=== PATIENT | female | born 1965 | race Caucasian/White ===

== ENCOUNTER 2017-02-28 15:30 | Emergency (ER) | payer OTHER ==
--- NOTE | ~2017-02-28 | CR252 ---
[facility] A Service of [facility] & [facility] RADIOLOGY TEXT RESULTS PATIENT: DANISHA ABEL LOCATION: CFTX : 63 UNIT #: [id number] AGE: [address]: Clementina De La Cruz APRN SEX: F ORDER DR: [id number] [facility] [address] [place], [place] [address] [id number] E MR#: [id number] Acc #: [id number] NAME: DANISHA ABEL : 1965 SEX: F STUDY DATE/TIME: 02/28/2017 16:27 UNIT: CFTX ROOM: STUDY DESCRIPTION: CR Tibia and Fibula 2 Views Lt Attending Physician: Clementina De La Cruz A.P.R.N. Ordering Physician: [facility] Primary Care Physician: Sina Gilman M.D. MEDICAL IMAGING REPORT This report is preliminary unless electronic signature is present EXAM Left tibia and fibula 4 views 02/28/2017 COMPARISON None. HISTORY Fall on gravel today with pain and swelling. FINDINGS Negative for fracture, foreign body, or dislocation, though there does appear to be soft tissue defect. Dictated by... Rafael Sam M.D. THIS IS AN ELECTRONICALLY VERIFIED REPORT Rafael Sam M.D. at 03/09/2017 10:40 AM TEV/pcl TD: 03/01/2017 11:34 JOB #: [id number] MEDICAL IMAGING REPORT Page 1 of 1 COPY
--- NOTE | ~2017-02-28 | CR127 ---
[facility] A Service of [facility] & [facility] RADIOLOGY TEXT RESULTS PATIENT: DANISHA ABEL LOCATION: CFTX : 63 UNIT #: [id number] AGE: [address]: Clementina De La Cruz APRN SEX: F ORDER DR: [id number] [facility] [address] [place], [place] [address] [id number] E MR#: [id number] Acc #: [id number] NAME: DANISHA ABEL : 1965 SEX: F STUDY DATE/TIME: 02/28/2017 18:29 UNIT: [facility] ROOM: STUDY DESCRIPTION: CR Foot Complete Min 3 View Rt Attending Physician: Clementina De La Cruz A.P.R.N. Ordering Physician: Ed Justin Bond M.D. Primary Care Physician: Sina Gilman M.D. MEDICAL IMAGING REPORT This report is preliminary unless electronic signature is present EXAM Right foot, 3 views. HISTORY Foot pain and swelling after a fall today. FINDINGS The tarsal, metatarsal, and phalangeal elements are all anatomically normal in position and alignment. There are no articular defects. No fractures or radiopaque foreign bodies in the soft tissues are apparent. IMPRESSION Normal foot. Dictated by... Gael Donaldson M.D. THIS IS AN ELECTRONICALLY VERIFIED REPORT Gael Donaldson M.D. at 03/01/2017 10:57 PM DFL/slade TD: 03/01/2017 14:00 JOB #: [id number] MEDICAL IMAGING REPORT Page 1 of 1 COPY
--- NOTE | ~2017-02-28 | CR169 ---
[facility] A Service of [facility] & [facility] RADIOLOGY TEXT RESULTS PATIENT: DANISHA ABEL LOCATION: CFTX : 63 UNIT #: [id number] AGE: [address]: Clementina De La Cruz APRN SEX: F ORDER DR: [id number] [facility] [address] [place], [place] [address] [id number] E MR#: [id number] Acc #: [id number] NAME: DANISHA ABEL : 1965 SEX: F STUDY DATE/TIME: 02/28/2017 16:26 UNIT: [facility] ROOM: STUDY DESCRIPTION: CR Knee 2 Views Lt Attending Physician: Clementina De La Cruz A.P.R.N. Ordering Physician: [facility] Primary Care Physician: Sina Gilman M.D. MEDICAL IMAGING REPORT This report is preliminary unless electronic signature is present EXAM Left knee HISTORY Fall. Left knee injury and laceration. Patient fell today. Patient has pain. FINDINGS Three views of the left knee were obtained. There is a laceration visible anterior to the patella on the lateral view. There is no fracture or foreign body. IMPRESSION There is an anterior laceration visible in front of the patella, otherwise the study is normal. Dictated by... Neto Rodriguez M.D. THIS IS AN ELECTRONICALLY VERIFIED REPORT Neto Rodriguez M.D. at 03/02/2017 7:12 AM FEL/pcl TD: 03/01/2017 11:33 JOB #: [id number] MEDICAL IMAGING REPORT Page 1 of 1 COPY
[~2017-02-28 15:30] MED LIST: ACETAMIN; ACETAMINOPHEN PO; AMBIZINE25 MG PO; ANTIVERT PO; ASPIRIN81 M2 PO; ATORVASTATIN CA20 MG PO; BACTRIM DS TABL1 TAB PO; CHANTIX PO; CHANTIX1 MG PO; CIPRO PO; ESGIC 50-325-41 EACH PO; FERREX 150 FOR1 EACH PO; FIORICET1 TAB PO; FIORINAL 50-321 EACH PO; FIORINAL CAPSUL1 CAP PO; FLAGYL PO; FLEXERIL10 MG PO; GARCINIA; GARCINIA CAMBO1 EACH PO; GARCINIA CAMBOGIA PO; HAIR, SKIN & N1 EAC1 PO; HYDROCHLOROTH12.5 MG PO; HYDROCHLOROTHIA25 MG PO; HYDROXYZINE HCL25 M1 DOB; HYDROXYZINE HCL25 M1 PO; IRON1 TAB PO; KLONOPIN1 MG PO; KLONOPIN2 MG PO; LAMICTAL XR200 MG PO; LAMICTAL100 MG PO; LAMOTRIGINE200 MG PO; LIPITOR PO; LIPITOR20 MG PO; LOSARTAN POTASS50 MG PO; LOW DOSE ASPIRI81 M1 PO; MICROZIDE12.5 M1 PO; NABUMETONE PO; NITROGLYGERIN0.4 MG SL; NITROQUICK0.4 MG SL; NITROSTAT0.4 MG SL; NORCO 10-325 TA1 TAB PO; NORCO 10/3251 TAB PO; OMEPRAZOLE40 M1 PO; ORUDIS75 M1 PO; PANTOPRAZOLE SO40 MG PO; PHENERGAN PO; POTASSIUM CITR10 MEQ PO; PRILOSEC PO; PRILOSEC40 MG PO; QUETIAPINE FUM300 MG PO; SEROQUEL300 M1 PO; SEROQUEL300 MG DOB; VESICARE PO; VESICARE5 MG PO; VIT B-12 PO; VITAMIN C PO; VITAMIN D 4001 UDTAB PO; VITAMIN D1000 UNI1 PO; VITAMIN D3 PO; WATER PILL; WELLBUTRIN XL PO; [UNRECOGNIZED DRUG - OTHER]; [UNRECOGNIZED DRUG - OTHER] PO; [UNRECOGNIZED DRUG - OTHER] PO; [UNRECOGNIZED DRUG - REMARK]
== END 2017-02-28 19:35 | disposition home or self-care (01) ==
LOC: CFTX 15:30 → CED 15:30 → CFTX 17:31
DX: S81.012A Laceration without foreign body, left knee, initial encounter (principal); S93.601A Unspecified sprain of right foot, initial encounter; R03.0 Elevated blood-pressure reading, without diagnosis of hypertension; I10 Essential (primary) hypertension; F31.9 Bipolar disorder, unspecified; F41.9 Anxiety disorder, unspecified; N28.9 Disorder of kidney and ureter, unspecified; F17.200 Nicotine dependence, unspecified, uncomplicated; Z88.8 Allergy status to other drugs, medicaments and biological substances; Z79.82 Long term (current) use of aspirin; Z79.899 Other long term (current) drug therapy; Z23 Encounter for immunization; W01.0XXA Fall on same level from slipping, tripping and stumbling without subsequent striking against object, initial encounter; Y92.69 Other specified industrial and construction area as the place of occurrence of the external cause
CPT/HCPCS: 12032; 29540; 73560; 73590; 73630; 90471; 90715; 99283